=== PATIENT | female | born 1990 | race Caucasian/White ===

== ENCOUNTER 2023-04-01 06:43 | Emergency (ER) | payer OTHER, SELFPAY ==
--- NOTE | ~2023-04-01 | XR_ITS ---
EXAMINATION: XR LUMBOSACRAL SPINE CLINICAL INFORMATION: Low back pain COMPARISON: None available. TECHNIQUE: Three views of the lumbosacral spine. FINDINGS: 5 nonrib-bearing lumbar vertebral bodies are visualized. Alignment is within normal limits. Lumbar vertebral body heights are maintained. There is mild narrowing of the L4/L5 and L5/S1 disc space heights. Mild degenerative changes of the posterior elements of the lower lumbar spine. Sacroiliac joints are symmetric. IUD projects over the central pelvis. XR/XR lumbar spine 2-3V IMPRESSION: Mild degenerative changes of the lower lumbar spine.
[2023-04-01 06:53] VITALS: BP 131/90; PULSE 105; RESP 15; TEMP 36.2; O2SAT 96; BMI 33.7
--- NOTE | 2023-04-01 09:39 | ED_ITS ---
HPI - General Adult General Chief complaint: Extremity Injury, Lower Stated complaint: leg pain Time Seen by Provider: 04/01/23 09:32 Source: patient Mode of arrival: ambulatory Limitations: no limitations History of Present Illness HPI narrative: 33-year-old female with chronic lower back/leg pain presents for evaluation of bilateral leg pain. She reports tweaking her back a few years ago and has had shooting pain down the back of her left leg since. She denies trauma/falls. She states the pain has been much worse this past weekend and is now affecting her right leg so her PCP told her to come to the ED. She reports paresthesias bilaterally and numbness of the left leg with prolonged sitting. She denies gait abnormalities. No loss of coordination. She denies weakness. No foot drop. No urinary or bowel incontinence or saddle paresthesias. No fevers or chills. No chest pain, palpitations, or SOB. Related Data Previous Rx's Medication Instructions Recorded ketorolac 10 mg tablet 10 mg PO TID PRN pain 5 days #15 04/01/23 tabs Allergies Allergy/AdvReac Type Severity Reaction Status Date / Time No Known Allergies Allergy Verified 04/01/23 09:46 Review of Systems Review of Systems: Constitutional : No Weight loss, No Fever, No Chills, Cardiovascular : No Chest Pain, No SOB Respiratory : No Cough, No Dyspnea Gastrointestinal : No Nausea, No Vomiting, No Diarrhea, No abdominal Pain, No Hematochezia, No Melena Genitourinary : No Dysuria, No Urinary Frequency, No Hematuria, No Urinary Incontinence, Musculoskeletal : +positive back pain +Shooting pain down back of bilateral legs Skin : No Skin Lesions, No rash Neuro : No Weakness, No Numbness, No Paresthesias, no loss of bowel or bladder incontinence, no saddle anesthesia PMFSH Social History Social History Smoked in Last 30 Days: No Use of substances other than those prescribed or required for medical reasons: No Advance Directives: No Advance Directives Information Provided: No Patient : No Physical Exam ED Vital Signs: Vital Signs - 24 hr 04/01/23 06:53 04/01/23 11:40 Temperature 97.1 F Pulse Rate 105 H 85 Respiratory Rate 15 16 Blood Pressure 131/90 H 139/92 H Pulse Oximetry 96 100 Oxygen Delivery Method Room Air Room Air BMI result Body Mass Index 33.7 Tachycardia likely secondary to pain Appearance: Alert.? Oriented X3.? No acute distress.? Head: Normocephalic, atraumatic, no step-offs or deformities Eyes: Pupils equal, round and reactive to light.? CVS: Normal heart rate and rhythm.? Pulses normal.? Respiratory: No respiratory distress.? Breath sounds normal.? Abdomen: Soft and nontender.? Skin: Skin warm and dry.? Normal skin color.? Normal skin turgor.? Extremities: No lower extremity edema.? No calf ttp. 5/5 strength to bilateral upper and lower extremities. Sensation to sharp and dull intact bilaterally. 2+ PT/DP pulses bilaterally. Normal reflexees to patella b/l. Back:+Straight leg test on right. Negative straight leg on left. +Paraspinal tenderness with palpation of left lumbar back--no paraspinal tenderness on right. No saddle anesthesia. No midline tenderness, no C-spine tenderness, full range of motion, no CVA tenderness bilaterally Neuro: Oriented X 3.? No motor deficit.? No sensory deficit. CN 2-12 intact Course Reevaluation(s) Reevaluation #1: Mild degenerative changes of lower lumbar spine, likely contributing to patient's pain or discomfort, patient is getting an MRI scheduled outpatient she is walking around the department without difficulty feels better after Toradol and Lidoderm. Will give her spines for follow-up. I do not suspect a cord compression or cauda equina patient going to the bathroom as usual, no saddle paresthesias. Educated patient on diagnosis and treatment plan, answered all question, patient verbalizes understanding. At this time patient will be discharged home, advised to return with new or worsening symptoms. Educated on worrisome signs and symptoms and when to return. At this time I feel comfortable discharge home. Time: 11:45 Medications Administered Discontinued Medications Generic Name Dose Route Start Last Admin Trade Name Cayetanoq PRN Reason Stop Dose Admin Ketorolac Tromethamine 30 mg 04/01/23 09:46 04/01/23 09:54 Ketorolac Tromethamine 15 Mg/Ml Vial IM 04/01/23 09:47 30 mg ONCE ONE Administration Lidocaine 1 patch 04/01/23 09:46 04/01/23 09:54 Lidocaine 4 % Patch Adh..Patch TRANSDERMA 04/01/23 09:47 1 patch ONCE ONE Administration Protocol Medical Decision Making Medical Decision Making [facility] Narrative: 33-year-old female presents with lower back pain, bilateral shooting pain from buttocks to toes, and paresthesias. No saddle anesthesias, urinary incontinence, gait abnormalities, or fevers. She denies trauma/falls. Physical exam revealed positive straight leg test on right. No saddle anesthesias. 5/5 strength and full ROM of bilateral LE. 2+ DP/PT pulses bilaterally. Gait and coordination normal. Likely lumbar radiculopathy, spondylosis, lumbago, spinal stenosis, herniated disc, unlikely cauda equinae, spinal cord compression, epidural abscess, meningitis, fracture Plan: Lumbar spine xray Differential Diagnosis Differential Diagnoses: The differential diagnosis associated with the presentation includes Likely lumbar radiculopathy, spondylosis, spinal stenosis, herniated disc, unlikely cauda equinae, spinal cord compression, epidural abscess, meningitis, fracture Admission/Observation Consideration of admission/observation: Escalation of care including admission/observation considered unlikely Tests considered The following testing was considered but not selected: No red flag sx no indication for mri or emergent imaging/ decompression Discharge Plan Discharge Clinical Impression: Lumbar radiculopathy Patient Disposition: Home, Self-Care Instructions: Lumbar Radiculopathy (ED), Back Pain (ED) Additional Instructions: Take your medications as prescribed. If you were prescribed antibiotics today, it is important that you take your medication to their entirety, do not skip any doses, do not finish them early. Follow-up with your primary care provider this week. Return to the emergency department with new or worsening symptoms. Such as fevers, chills, chest pain, shortness of breath, nausea, vomiting, dizziness, headache, vision changes, lethargy In case of emergency call 911 XR/XR lumbar spine 2-3V IMPRESSION: Mild degenerative changes of the lower lumbar spine. Prescriptions: New ketorolac 10 mg tablet 10 mg PO TID PRN (Reason: pain) 5 Days Qty: 15 0RF Referrals: [facility] [Provider Group] - 2 days Physician,Josue J [Primary Care Provider] - 2 days Stand Alone Forms: Work/School Release
[2023-04-01] MEDS: Ketorolac Tromethamine 15 MG/ML VIAL 30 MG IM (09:54)
[2023-04-01] MEDS: Lidocaine 4 % Patch ADH..PATCH 1 PATCH TRANSDERMA (09:54)
--- NOTE | 2023-04-01 09:58 | PC.NURSE ---
medication administered per provider order. will reassess pain level.
--- NOTE | 2023-04-01 11:07 | PC.NURSE ---
pain level reassessed - pt rating pain level at a 7/10 at this time. states pain level decreased. pt awaiting results from xray a this time.
[2023-04-01 11:40] VITALS: BP 139/92; PULSE 85; RESP 16; O2SAT 100
--- NOTE | 2023-04-01 11:53 | PC.NURSE ---
pt able to ambulate w/o difficulty at this time. pt able to ambulate w/ steady gait.
== END 2023-04-01 11:59 | disposition home or self-care (01) ==
PROVIDERS: Emergency Provider Emergency Medicine
DX: M54.16 Radiculopathy, lumbar region (principal)
CPT/HCPCS: 72100; 96372; 99284; J1885

== ENCOUNTER 2023-04-18 08:05 | Outpatient (REF) | payer OTHER, SELFPAY ==
--- NOTE | ~2023-04-18 | MR_ITS ---
EXAMINATION: MR LUMBAR SPINE WITHOUT CONTRAST CLINICAL INFORMATION: Low back pain. COMPARISON: None available. TECHNIQUE: Multiplanar, multisequence imaging was obtained. FINDINGS: VERTEBRAL BODIES AND PARASPINAL STRUCTURES: There are chronic fatty marrow degenerative endplate changes and moderate disc space narrowing with a mild posterior subluxation at the L4-L5 level. Slight posterior subluxation is mildly reduced with minimal endplate spurring also evident at the L3-L4 level. There are no compression fractures. The remaining discs are well hydrated. The paraspinal soft tissues appear normal. There are mild degenerative changes of the sacroiliac joints. CONUS MEDULLARIS AND CAUDA EQUINE: The distal cord, conus tip, and cauda equina nerve roots are normal. SPINAL LEVELS: L1-L2 and L2-L3: Well-hydrated normal appearance of the discs without central canal stenosis or foraminal narrowing. L3-L4: Mild posterior subluxation and shallow central disc protrusion mildly impressing upon the ventral thecal sac. No central canal stenosis or foraminal narrowing. L4-L5: Moderate loss of disc height and diffuse disc bulge with a broad-based central disc protrusion compressing both L5 nerve roots in the subarticular zones, more so on the left side. Additional mass effect upon the ventral thecal sac. No central canal stenosis. Mild facet arthropathy. Kvzj-ga-[id number] foraminal narrowing, more so on the left side. L5-S1: Well-hydrated disc and [id number] facet arthropathy. No central canal stenosis or foraminal narrowing. MR/MR lumbar spine wo con IMPRESSION: 1. Moderate degenerative disc disease at the L4-L5 level with a broad-based central disc protrusion compressing both L5 nerve roots in the subarticular zones. No central canal stenosis. Vnzh-ys-[id number] foraminal narrowing, more so on the left side. 2. Mild posterior subluxation and shallow central disc protrusion at the L3-L4 level.
== END 2023-04-18 08:06 | disposition home or self-care (01) ==
LOC: HO.MRI 08:05
PROVIDERS: Visit Provider Family Medicine
DX: M54.50 Low back pain, unspecified (principal); F41.9 Anxiety disorder, unspecified
CPT/HCPCS: 72148

== ENCOUNTER 2023-06-04 13:58 | Outpatient (AMB) | payer OTHER, SELFPAY ==
--- NOTE | 2023-06-04 14:16 | MHC.OFFVIS ---
Intake Intake Visit Reasons: 2nd opinion/ Lumbar disc replacement Chief Design Drafter Required: No Allergies No Known Allergies Allergy (Verified 04/01/23 09:46) Assessment & Plan Assessment & Plan (1) Lumbar disc herniation: Code(s): M51.26 - Other intervertebral disc displacement, lumbar region Plan This is a very nice 33-year-old female who presents to the office today for a 2nd opinion evaluation on a degenerative/herniated disc at L4-5. She has had on and off issues with her back for years. Dating back as far as 2016 or possibly further back she has had flare-ups that she will generally she with physical therapy, rest, [id number] medications etc.. Sometime in November of 2022 she was carrying her 2 children, 1 in each arm and felt acute sensation of back pain. That subsequently turned into numbness going down her left leg short while thereafter, and then ultimately progressed to severe bilateral radiating leg pains with numbness of both of her feet. The pain has been getting steadily worse over the last few months. She has been to the emergency room 2 or 3 times just to receive treatment. The pain is almost intolerable and to a degree where it affects her quality of life. She has not able to interact with her children, or participate in much of their care. She is very frustrated with her lack of progress and recovery. Typically she is able to get through these flare-ups without needing any kind of significant intervention, but at this point she is already undergone 2 injections. The 2nd 1 did help a little but the effect wore off. She is currently taking gabapentin, tramadol, Tylenol, Motrin. She saw at [facility], who felt she would be a good candidate for lumbar artificial disc replacement. The patient was interested in a 2nd opinion and came to our office for evaluation by Dr. Davis. PMH: She is otherwise healthy, no history of major surgery. She does have anxiety and depression. Denies any heart attacks, strokes, coagulopathy, blood clots, kidney disorders. Social hx: She has a previous history of alcohol abuse but no associated liver disease, she has been sober now for 4 years. she does not smoke. She does use marijuana gummies about 1 per day to help with the pain. Medications: Effexor, Tylenol, gabapentin, tramadol, oxycodone, Motrin Allergies: None Physical exam: She is awake alert oriented, she is here with her mother in the office today. She is tearful at times and is in a significant amount of discomfort just getting up out of a chair trying to get onto an examining table. She has positive straight leg raise at about 5-10 degrees bilaterally. No significant weakness but a tremendous amount of pain related weakness. Reflexes are intact at the patella and Achilles. Imaging review: Lumbar MRI done her [facility] March 2023 shows a chronically collapsed and degenerative disc with a central disc herniation set off more to the left which is causing moderate to severe central canal stenosis and compression of the descending nerve roots. There are Modic endplate changes as well. Impression: 33-year-old female presents to the office today for 2nd opinion on consideration of an artificial disc in her lumbar spine at L4-5. She does have a history of chronic low back pain going back many years, on and off treated with physical therapy and gentle conservative treatment. This more recent flare-up also has included back pain and leg pain which has been getting worse over time. This time she is he even gone through injections which were modestly helpful and the affected wear off. Dr. Davis and I met with her, reviewed her imaging with her at length. Given her age, he does agree that an artificial disc would be reasonable option. We also discussed the option of just doing a simple diskectomy, but in light of the chronic pain issue she has been having going back many years she does not want to treat this in a way that may just result with her coming back to the operating room multiple times. Therefore we told her we do think it is reasonable given the chronic degenerative changes that we see on the MRI that could justify the artificial disc replacement. We will need to coordinate this with office who is our approach surgeon. We have tentatively tried to plan this for June of this year. Pt was given risk and benefits of surgery including but not limited to infection, hematoma , nerve injury,durotomy, weakness,bowel/bladder injury, persistent pain, fusion of the implanted artificial disc as well as the option to continue with conservative treatment and patient wishes to proceed with surgery. Pt is aware they should stop their motrin, aspirin 7 days prior to surgery. All questions were answered to the best of our ability. If there is anything about this patients medical history that we have overlooked or concerns you have about us proceeding with surgery we would appreciate any input you can offer. Thank you for allowing us to care for your patient. The total time spent with this visit with this patient was 45 minutes reviewing history, physical exam, lumbar imaging review, and implementation of treatment plan or further diagnostic testing Heladio Davis MD,PhD [facility] Coding Level of Care Code New Pt Level 4 (41570) Diagnoses Lumbar disc herniation M51.26
== END 2023-06-04 14:51 | disposition home or self-care (01) ==
PROVIDERS: Visit Provider Physician Assistant
DX: M51.26 Other intervertebral disc displacement, lumbar region (principal)
CPT/HCPCS: 99204

== ENCOUNTER → 2023-06-04 13:58 | Outpatient (BNVA) | payer OTHER, SELFPAY | PROVIDERS: Visit Provider Physician Assistant ==